=== PATIENT | female | born 1940 | race Two or more races ===

== ENCOUNTER 2018-01-29 19:26 | Inpatient (IN) | payer MEDICARE, OTHER ==
[~2018-01-29] VITALS: Ht 162.6 cm; Wt 65.8 kg
--- NOTE | 2018-01-29 19:36 | NUR ---
Pt BIB [facility], reports pt had mechanical fall on bus and has neck and back pain. Pt c/o 10/10 lower back pain in addition to ALMARAZ and neck pain. Also states she has numbness/tingling in both feet and both hands. Pt denies CP, SOB, dizziness, n/v, no other complaints, no distress noted, but is having minor tremors in hands.
[2018-01-29] MEDS ORDERED: ACETAMINOPHEN 325 MG TABLET PO ONE (20:15)
[2018-01-29] MEDS ORDERED: ACETAMINOPHEN 325 MG TABLET ONE (21:20)
[2018-01-29] MEDS ORDERED: ONDANSETRON ODT 4 MG TAB.RAPDIS ONE (21:20)
[2018-01-29] MEDS ORDERED: ONDANSETRON ODT 4 MG TAB.RAPDIS SL ONE (21:30)
[2018-01-29 22:52] LABS: BASOPHILS % (AUTO) 0.4 % (0.0-2.0); EOSINOPHILS # (AUTO) 0.1 K/uL (0.0-0.7); EOSINOPHILS % (AUTO) 0.8 % (0.0-7.0); HEMATOCRIT 36.2 % (31.2-41.9); HEMOGLOBIN 12.3 g/dL (10.9-14.3); LYMPHOCYTES # (AUTO) 1.6 K/uL (20.0-40.0); LYMPHOCYTES % (AUTO) 18.3 % (20.5-51.5); MEAN CORPUSCULAR HEMOGLOBIN 31.8 uug (24.7-32.8); MEAN CORPUSCULAR HGB CONC 34 g/dL (32.3-35.6); MEAN CORPUSCULAR VOLUME 93.8 fL (75.5-95.3); MONOCYTES # (AUTO) 0.7 K/uL (2.0-10.0); MONOCYTES % (AUTO) 8.4 % (0.0-11.0); NEUTROPHILS # (AUTO) 6.1 K/uL (1.8-8.9); NEUTROPHILS % (AUTO) 72.1 % (38.5-71.5); PLATELET COUNT (AUTO) 328 K/uL (179-408); RED BLOOD CELL COUNT(AUTO) 3.86 MIL/uL (3.63-4.92); WHITE BLOOD COUNT (AUTO) 8.5 K/uL (3.8-11.8)
[2018-01-29 22:55] LABS: CARBON DIOXIDE 24 mmol/L (21-32); CHLORIDE 104 mmol/L (98-107); CREATININE 0.6 mg/dL (0.6-1.3); GLUCOSE 88 mg/dL (74-106); POTASSIUM 3.4 mmol/L (3.5-5.1); UREA NITROGEN, BLOOD 16 mg/dL (7-18)
[2018-01-29] MEDS ORDERED: MORPHINE SULFATE 2 MG/1 ML DISP.SYRIN IV ONE (23:00)
[2018-01-29] MEDS ORDERED: MORPHINE SULFATE 4 MG/1 ML DISP.SYRIN ONE (23:00)
--- NOTE | 2018-01-29 23:07 | NUR ---
Dr. Simmons speaking to Bryant Barney ([facility]).
[2018-01-29] MEDS ORDERED: MAGNESIUM HYDROXIDE 30 ML LIQUID UDC PO PRN (23:30)
[2018-01-29] MEDS ORDERED: ACETAMINOPHEN 325 MG TABLET PO PRN (23:30)
[2018-01-29] MEDS ORDERED: Z GUARD REMEDY PASTE 57 GM TUBE TOP PRN (23:30)
[2018-01-29] MEDS ORDERED: ONDANSETRON 4 MG/2 ML VIAL IV PRN (23:30)
--- NOTE | 2018-01-29 23:50 | NUR ---
Pt. admitted to [facility] room 215, under care of Dr. Bryant Barney Belongs List completed. Report given to NORI Rose. DX: T-12 fracture.
[2018-01-30] MEDS ORDERED: ENOXAPARIN SODIUM 40 MG/0.4 ML DISP.SYRIN SQ ONE
--- NOTE | 2018-01-30 | NUR ---
Received patient from ER in stable condition. No acute distress noted. New admit to Med surg floor under MAIL ORDER CLERK Bryant Barney. Admit Dx T8 & T12 Fracture. Patient stating she has pain only when moved. A/Ox3, Georgian/Belarusian speaking, able to make most needs known. Vital signs within range upon admission. Skin intact, no skin issues noted. Left forearm 20G IV site is patent, flushing well, & locked. Per ER nurse, medical hx of patient is unknown. Daughter to come in AM. Patient stating that she is healthy & has no medical conditions. F/U with daughter for medical hx & home meds in AM. MAIL ORDER CLERK Bryant Bareny aware. Patient refusing to be changed & wear hospital clothing. Bed in low position, locked, x2 side rails up. Call light within reach. Will continue to monitor through shift.
[2018-01-30 00:44] VITALS: BP 113/60
[2018-01-30 05:08] VITALS: BP 108/62
[2018-01-30] MEDS: PANTOPRAZOLE SODIUM 40 MG TABLET.DR PO SCH (06:16)
[2018-01-30] MEDS: HYDROCODONE/APAP 5-325MG TABLET PO PRN (06:16)
--- NOTE | 2018-01-30 06:24 | NUR ---
No acute distress throughout the night. Slept well, vital signs within range. C/O pain lower back. Pain management provided. All needs attended to. Medications administered per MD order. Comfort measures provided. Safety measures implemented. Call light in reach. Will endorse to day shift nurse.
[2018-01-30 07:02] LABS: BASOPHILS % (AUTO) 0.2 % (0.0-2.0); EOSINOPHILS # (AUTO) 0.1 K/uL (0.0-0.7); EOSINOPHILS % (AUTO) 1.6 % (0.0-7.0); HEMATOCRIT 35.4 % (31.2-41.9); HEMOGLOBIN 12.2 g/dL (10.9-14.3); LYMPHOCYTES # (AUTO) 1.9 K/uL (20.0-40.0); LYMPHOCYTES % (AUTO) 30.7 % (20.5-51.5); MEAN CORPUSCULAR HEMOGLOBIN 32.5 uug (24.7-32.8); MEAN CORPUSCULAR HGB CONC 34 g/dL (32.3-35.6); MEAN CORPUSCULAR VOLUME 94.4 fL (75.5-95.3); MONOCYTES # (AUTO) 0.6 K/uL (2.0-10.0); MONOCYTES % (AUTO) 10.5 % (0.0-11.0); NEUTROPHILS # (AUTO) 3.4 K/uL (1.8-8.9); PLATELET COUNT (AUTO) 310 K/uL (179-408); RED BLOOD CELL COUNT(AUTO) 3.74 MIL/uL (3.63-4.92); WHITE BLOOD COUNT (AUTO) 6.1 K/uL (3.8-11.8)
[2018-01-30 07:25] LABS: CARBON DIOXIDE 26 mmol/L (21-32); CHLORIDE 104 mmol/L (98-107); CHOLESTEROL 248 mg/dL (<200); CREATININE 0.7 mg/dL (0.6-1.3); GLUCOSE 86 mg/dL (74-106); HDL CHOLESTEROL 46 mg/dL (40-60); PHOSPHOROUS 3.7 mg/dL (2.5-4.9); POTASSIUM 3.5 mmol/L (3.5-5.1); TRIGLYCERIDES 103 MG/DL (30-150); UREA NITROGEN, BLOOD 16 mg/dL (7-18)
[2018-01-30 07:28] LABS: THYROID STIMULATING HORMONE 10.813 mIU/mL (0.358-3.740)
--- NOTE | 2018-01-30 07:30 | NUR ---
Patient continued to report pain 10 out of 10 for back pain this am after [place], not effective. offered Morphine for pain, refused. Patient also reported pain on lateral left side of head, patient stated that she possibly hit her head when she fell unable to recall, will report to MD for recommendation of CT head
[2018-01-30 10:04] VITALS: BP 109/73
[2018-01-30] MEDS ORDERED: KETOROLAC TROMETHAMINE 30 MG INJ IVP ONE (10:30)
[2018-01-30] MEDS ORDERED: LORAZEPAM 0.5 MG TABLET PO PRN (11:30)
[2018-01-30] MEDS: IV NS 1000 ML 1,000 ML IV PRN (12:14)
[2018-01-30 15:03] VITALS: BP 101/55
[2018-01-30] MEDS: NAPROXEN 250 MG TABLET PO SCH (18:43)
[2018-01-30] MEDS: GABAPENTIN 100 MG CAPSULE PO SCH (18:43)
[2018-01-30 18:46] VITALS: BP 113/50
--- NOTE | 2018-01-30 19:30 | NUR ---
Patient stable at start of shift. Lying comfortably in bed, alert, awake, & able to make her needs known. Pertinent assessment completed. Vital signs within range. No C/O pain at beginning of shift. Patient states she only has pain with movement. Pain management to be provided. Noted with left forearm 20G peripheral IV running with NS at 75cc/hr. No signs of infiltration noted at IV site. Bed in low position, locked, with side rails up. Encouraged patient to use call light for assistance & ambulating to restroom. Call light within reach. Will continue to monitor through shift.
[2018-01-30] MEDS: ENOXAPARIN SODIUM 40 MG/0.4 ML DISP.SYRIN SQ SCH (20:07)
[2018-01-30 20:16] VITALS: BP 119/48
[2018-01-31] MEDS: IV NS 1000 ML 1,000 ML IV PRN ×2 (02:27→16:34)
[2018-01-31 05:24] VITALS: BP 132/62
[2018-01-31] MEDS: PANTOPRAZOLE SODIUM 40 MG TABLET.DR PO SCH (06:08)
--- NOTE | 2018-01-31 06:15 | NUR ---
Slept well during the night. No C/O pain during the shift. Complaint with care. All needs attended to promptly. Medications administered per MD order. Patient kept clean & dry. Safety measures implemented. Bed kept in lowest position, locked, with x2 side rails up. Call light within reach. Will endorse to day shift nurse.
[2018-01-31] MEDS: GABAPENTIN 100 MG CAPSULE PO SCH ×3 (08:35→17:07)
[2018-01-31] MEDS: NAPROXEN 250 MG TABLET PO SCH ×3 (08:35→17:07)
[2018-01-31] MEDS: HYDROCODONE/APAP 5-325MG TABLET PO PRN ×3 (11:21→21:02)
[2018-01-31 11:43] VITALS: BP 102/60
--- NOTE | 2018-01-31 14:00 | NUR ---
received hand off report from elinor lizama
--- NOTE | 2018-01-31 14:15 | NUR ---
PATIENT LYING IN BED, IN NO DISTRESS. IVF RUNNING, NO INFILTRATION NOTED. PAIN MANAGEMENT ORDERED. VS STABLE, AFEBRILE. ASSISTED PATIENT WITH TOILETING NEEDS. ENDORSED TO DAY SHIFT RN.
--- NOTE | 2018-01-31 14:33 | NUR ---
received hand off report from elinor lizama
[2018-01-31 16:06] VITALS: BP 141/56
--- NOTE | 2018-01-31 18:45 | NUR ---
PATIENT IN STABLE CONDITION. IV ACCESS INTACT AND PATENT, IVF INFUSING WELL, PAIN CONTROLLED W/ NORCO 5-325MG Q4PRN. ALL NEEDS ATTENDED AND ANTICIPATED. CALL LIGHT WITHIN REACH
--- NOTE | 2018-01-31 19:33 | NUR ---
Pt observed to be resting in bed at this time AAO x 4, in no acute distress. Safe environment implemented. Call light within reach.
[2018-01-31] MEDS: ATORVASTATIN 10 MG TABLET PO SCH (20:05)
[2018-01-31] MEDS: ENOXAPARIN SODIUM 40 MG/0.4 ML DISP.SYRIN SQ SCH (20:07)
[2018-01-31 20:24] VITALS: BP 110/50
[2018-02-01 04:00] VITALS: BP 95/51
[2018-02-01] MEDS: PANTOPRAZOLE SODIUM 40 MG TABLET.DR PO SCH (06:13)
[2018-02-01] MEDS: IV NS 1000 ML 1,000 ML IV PRN ×2 (06:13→20:30)
--- NOTE | 2018-02-01 06:26 | NUR ---
Pain management provided as ordered. No s/s of acute distress noted at this time. Safe environment implemented. Call light within reach.
[2018-02-01] MEDS: NAPROXEN 250 MG TABLET PO SCH ×3 (08:11→16:55)
[2018-02-01] MEDS: GABAPENTIN 100 MG CAPSULE PO SCH ×3 (08:11→16:55)
[2018-02-01] MEDS ORDERED: BISACODYL 10 MG SUPP.RECT RC PRN (10:30)
[2018-02-01] MEDS ORDERED: MIRALAX 17 GM POWD.PACK PO PRN (10:30)
[2018-02-01] MEDS ORDERED: MINERAL OIL FLEET ENEMA 133 ML BOTTLE RC PRN (10:30)
[2018-02-01 11:30] VITALS: BP 120/56
[2018-02-01] MEDS: HYDROCODONE/APAP 5-325MG TABLET PO PRN (14:22)
[2018-02-01 16:12] VITALS: BP 124/67
--- NOTE | 2018-02-01 18:54 | NUR ---
PATIENT RESTING IN BED, IN NO DISTRESS. IVF RUNNING, NO INFILTRATION NOTED. VS STABLE, AFEBRILE. ASSISTED PATIENT WITH TOILETING NEEDS. PAIN MANAGEMENT ORDERED. WILL ENDORSE TO SENIOR ELECTRICAL PROJECT MANAGER RN.
--- NOTE | 2018-02-01 19:20 | NUR ---
Received patient lying in bed. AAO x2-3. no confusion noted. In no acute distress. VS WNL. IV site on left hand intact and patent. IVF infusing. Complained of pain on left side of her body, will provide pain medication per order. Needs assessed and attended to. Safety measure initiated and call antonio within reach.
[2018-02-01] MEDS: MORPHINE SULFATE 2 MG/1 ML DISP.SYRIN IV PRN (19:58)
[2018-02-01 20:00] VITALS: BP 126/60
[2018-02-01] MEDS: ATORVASTATIN 10 MG TABLET PO SCH (20:28)
[2018-02-01] MEDS: ENOXAPARIN SODIUM 40 MG/0.4 ML DISP.SYRIN SQ SCH (20:29)
[2018-02-02 04:53] VITALS: BP 119/59
--- NOTE | 2018-02-02 06:04 | NUR ---
AAOx2-3. In no acute distress. VS WNL. IV site on left hand remains intact and patent. IVF infusing. Assisted to BSC PRN. Needs attended to and met. Safety measure maintained and call antonio within reach.
[2018-02-02] MEDS: PANTOPRAZOLE SODIUM 40 MG TABLET.DR PO SCH (06:08)
--- NOTE | 2018-02-02 07:30 | NUR ---
RECEIVED PATIENT IN BED WITH EYES CLOSED OPENED EYES WHEN NAME IS CALLED BUT WILL PROMPTLY FALL BACK ASLEEP NO RESPIRATORY DISTRESS AT THIS TIME NO S/S OF PAIN OR DISCOMFORTS.REMAIN ON IVF ORDERED WITH NO S/S OF INFILTERATION ON SITE MADE COMFORTABLE AND WILL CONTINUE TO OBSERVE.
[2018-02-02] MEDS: GABAPENTIN 100 MG CAPSULE PO SCH ×3 (08:11→16:18)
[2018-02-02] MEDS: NAPROXEN 250 MG TABLET PO SCH ×3 (08:11→16:18)
[2018-02-02] MEDS: IV NS 1000 ML 1,000 ML IV PRN ×2 (09:54→23:13)
[2018-02-02] MEDS: HYDROCODONE/APAP 5-325MG TABLET PO PRN (10:15)
--- NOTE | 2018-02-02 10:16 | NUR ---
ASSISTED TO THE BED SIDE COMMODE VOIDED LARGE AMOUNTS OF [place] COLORED URINE ASSISTED BACK INTO BED MADE COMFORTABLE AND MEDICATED FOR C/O GENERALISED PAIN ORDERED AND WILL CONTINUE TO OBSERVE.
[2018-02-02 11:45] VITALS: BP 136/64
--- NOTE | 2018-02-02 14:30 | NUR ---
NOTED BAND AIDE ON BILATERAL GREAT TOES REMOVED AND NOTED THAT LEFT GREAT TOE IS MISSING AND THE RIGHT GREAT TOE WITH A SMALL SCAB PATIENT STATED HAD IN GROWN TOE NAILS AND WAS AT THE CLINIC FEW WEEKS AGO WHERE SHE WAS SEEN BY A PRODUCTION LEAD NO BLEEDING BAND AIDE REPLACED AND MD AWARE WITH NO NEW ORDERS AT THIS TIME.
--- NOTE | 2018-02-02 15:10 | NUR ---
PATIENT STILL HAS NOT HAD A BOWEL MOVEMENT GAVE HER PRUNE JUICE WITH NO RESULTS OFFERED TO GIVE PATIENT ENEMA BUT SHE REFUSED STATED THAT SHE DOES NOT WANT IT AT THIS TIME MAY BE LATER TONIGHT.
[2018-02-02 15:30] VITALS: BP 134/57
--- NOTE | 2018-02-02 16:32 | NUR ---
PATIENT IS VERY ANXIOUS ABOUT DISCHARGE AFTER THE BROADCAST OPERATIONS MANAGER SPOKE WITH HER RE DISCHARGE PLANNING RE OPTIONS OF HER FINAL DESTINATION THE PATIENT IS VERY GUARDED AND UPSET AND DR WASHINGTON AWARE STATED WILL BE HERE TO SEE PATIENT THIS EVENING AND WILL THEN DECIDE NEXT PLAN OF CARE.
--- NOTE | 2018-02-02 17:59 | NUR ---
RESTING IN BED NABIL NOW STATED WAITING FOR DR HERNANDEZ TO COME AND INFORM HER THE NEXT PLAN OF CARE.
--- NOTE | 2018-02-02 19:30 | NUR ---
Received patient lying in bed. AAOx2-3. In no acute distress. VS WNL. IV site on left hand intact and patent. IVF infusing. Complained of pain on left side of her body, left leg and spine, will provide pain medication per order. Assisted to BSCx1 and urinated without difficulty. Offered Milk of Magnesia or Dulcolax supp. for constipation but patient refused, stated she will take one when she gets back home. Needs assessed and attended to. Safety measure initiated and call antonio within reach.
[2018-02-02 20:00] VITALS: BP 130/59
[2018-02-02] MEDS: ATORVASTATIN 10 MG TABLET PO SCH (20:18)
[2018-02-02] MEDS: MORPHINE SULFATE 2 MG/1 ML DISP.SYRIN IV PRN (20:19)
[2018-02-02] MEDS: ENOXAPARIN SODIUM 40 MG/0.4 ML DISP.SYRIN SQ SCH (20:21)
[2018-02-03 04:56] VITALS: BP 104/53
--- NOTE | 2018-02-03 06:08 | NUR ---
AAOx2-3. In no acute distress. Slept well last night. IV site on left hand remains intact and patent. IVF infusing. Assisted to BSC PRN. Needs attended to and met. Safety measure maintained and call antonio within reach.
[2018-02-03] MEDS: PANTOPRAZOLE SODIUM 40 MG TABLET.DR PO SCH (06:10)
[2018-02-03] MEDS: NAPROXEN 250 MG TABLET PO SCH ×2 (08:10→12:20)
[2018-02-03] MEDS: GABAPENTIN 100 MG CAPSULE PO SCH ×2 (08:10→12:20)
[2018-02-03] MEDS ORDERED: ATOR10TA PO (10:39)
[2018-02-03 12:00] VITALS: BP 121/64
--- NOTE | 2018-02-03 15:22 | NUR ---
D/C ORDERS RECEIVED NOTED AND CARRIED OUT,D/C INSTRUCTION AND EDUCATION GIVEN TO THE PT,D/C JORDONLOCK PER MD ORDERS,RN REPORT GIVEN TO THE [facility] .PT LEFT THE FACILITY VIA AMBULANCES IN STABLE CONDITION.
== END 2018-02-03 15:30 | DRG 544 ==
LOC: ER 19:26 → MED 23:48
PROVIDERS: ADMIT Hospitalist; ATTEND Hospitalist
DX: M80.88XA Other osteoporosis with current pathological fracture, vertebra(e), initial encounter for fracture (principal); M25.551 Pain in right hip; V48.6XXA Car passenger injured in noncollision transport accident in traffic accident, initial encounter; W01.0XXA Fall on same level from slipping, tripping and stumbling without subsequent striking against object, initial encounter; Y93.89 Activity, other specified; Y92.410 Unspecified street and highway as the place of occurrence of the external cause; G93.0 Cerebral cysts; E87.6 Hypokalemia; E02 Subclinical iodine-deficiency hypothyroidism; E78.5 Hyperlipidemia, unspecified; R26.2 Difficulty in walking, not elsewhere classified; M47.816 Spondylosis without myelopathy or radiculopathy, lumbar region; M85.80 Other specified disorders of bone density and structure, unspecified site; M47.814 Spondylosis without myelopathy or radiculopathy, thoracic region; K59.00 Constipation, unspecified
CPT/HCPCS: 36415; 70450; 72050; 72072; 72100; 72125; 72131; 72170; 73501; 83735; 84100; 84443; 85025; 85730; 97110; 97116; 97530; A4663; G0378; J1650; J1885; J2270; J7030; Q0162

== ENCOUNTER 2018-04-14 11:59 | Inpatient (IN) | payer MEDICARE, OTHER ==
[~2018-04-14] VITALS: Ht 152.4 cm; Wt 55.5 kg
[~2018-04-14 11:59] MED LIST: ATOR10TA PO
[2018-04-14] MEDS ORDERED: MORPHINE SULFATE 4 MG/1 ML DISP.SYRIN ONE (12:30)
[2018-04-14] MEDS ORDERED: MORPHINE SULFATE 4 MG/1 ML DISP.SYRIN IV ONE (12:30)
[2018-04-14 12:41] LABS: BASOPHILS % (AUTO) 0.5 % (0.0-2.0); EOSINOPHILS # (AUTO) 0.1 K/uL (0.0-0.7); EOSINOPHILS % (AUTO) 1.5 % (0.0-7.0); HEMATOCRIT 39.7 % (31.2-41.9); HEMOGLOBIN 13.4 g/dL (10.9-14.3); LYMPHOCYTES # (AUTO) 2.4 K/uL (20.0-40.0); LYMPHOCYTES % (AUTO) 32.5 % (20.5-51.5); MEAN CORPUSCULAR HEMOGLOBIN 31.9 uug (24.7-32.8); MEAN CORPUSCULAR HGB CONC 34 g/dL (32.3-35.6); MEAN CORPUSCULAR VOLUME 95.1 fL (75.5-95.3); MONOCYTES # (AUTO) 0.8 K/uL (2.0-10.0); MONOCYTES % (AUTO) 11.6 % (0.0-11.0); NEUTROPHILS # (AUTO) 3.9 K/uL (1.8-8.9); NEUTROPHILS % (AUTO) 53.9 % (38.5-71.5); PLATELET COUNT (AUTO) 312 K/uL (179-408); RED BLOOD CELL COUNT(AUTO) 4.18 MIL/uL (3.63-4.92); WHITE BLOOD COUNT (AUTO) 7.2 K/uL (3.8-11.8)
[2018-04-14 12:48] LABS: CARBON DIOXIDE 28 mmol/L (21-32); CHLORIDE 103 mmol/L (98-107); CREATININE 0.7 mg/dL (0.6-1.3); GLUCOSE 85 mg/dL (74-106); UREA NITROGEN, BLOOD 17 mg/dL (7-18)
[2018-04-14] MEDS ORDERED: ATOR10TA PO (12:53)
[2018-04-14] MEDS ORDERED: GABA-532 PO (12:53)
[2018-04-14] MEDS ORDERED: LEVO25TA9 PO (12:53)
[2018-04-14] MEDS ORDERED: KETOROLAC TROMETHAMINE 30 MG INJ IVP ONE (13:45)
[2018-04-14] MEDS ORDERED: KETOROLAC TROMETHAMINE 30 MG INJ ONE (13:50)
[2018-04-14] MEDS ORDERED: HYDROMORPHONE 1 MG/1 ML DISP.SYRIN IV ONE (15:15)
[2018-04-14] MEDS ORDERED: HYDROMORPHONE 1 MG/1 ML DISP.SYRIN ONE (15:29)
[2018-04-14] MEDS ORDERED: NITROGLYCERIN OINT 1 GM PACKET TP ONE ×2 (19:00→19:06)
[2018-04-14] MEDS ORDERED: ASPIRIN 81 MG TAB.CHEW PO ONE (19:00)
[2018-04-14] MEDS ORDERED: ASPIRIN 81 MG TAB.CHEW ONE (19:06)
[2018-04-14] MEDS ORDERED: Z GUARD REMEDY PASTE 57 GM TUBE TOP PRN (19:45)
[2018-04-14] MEDS ORDERED: MORPHINE SULFATE 2 MG/1 ML DISP.SYRIN IV PRN (19:45)
[2018-04-14] MEDS ORDERED: ONDANSETRON 4 MG/2 ML VIAL IV PRN (19:45)
[2018-04-14] MEDS ORDERED: ACETAMINOPHEN 325 MG TABLET PO PRN (19:45)
[2018-04-14] MEDS ORDERED: MAGNESIUM HYDROXIDE 30 ML LIQUID UDC PO PRN (19:45)
[2018-04-14 20:00] VITALS: BP 107/51
[2018-04-14] MEDS ORDERED: MORPHINE SULFATE 4 MG/1 ML DISP.SYRIN IV PRN (20:00)
[2018-04-14] MEDS: ATORVASTATIN 10 MG TABLET PO SCH (21:00)
[2018-04-14] MEDS: MORPHINE SULFATE 4 MG/1 ML DISP.SYRIN IV PRN (21:01)
[2018-04-15] VITALS: BP 110/54
[2018-04-15 04:00] VITALS: BP 119/63
[2018-04-15] MEDS: LEVOTHYROXINE SODIUM 25 MCG TABLET PO SCH (06:14)
[2018-04-15 06:55] LABS: BASOPHILS % (AUTO) 0.3 % (0.0-2.0); EOSINOPHILS # (AUTO) 0.2 K/uL (0.0-0.7); EOSINOPHILS % (AUTO) 2.5 % (0.0-7.0); HEMATOCRIT 36.6 % (31.2-41.9); HEMOGLOBIN 12.3 g/dL (10.9-14.3); LYMPHOCYTES # (AUTO) 1.9 K/uL (20.0-40.0); LYMPHOCYTES % (AUTO) 30.4 % (20.5-51.5); MEAN CORPUSCULAR HEMOGLOBIN 31.2 uug (24.7-32.8); MEAN CORPUSCULAR HGB CONC 34 g/dL (32.3-35.6); MEAN CORPUSCULAR VOLUME 93.3 fL (75.5-95.3); MONOCYTES # (AUTO) 0.7 K/uL (2.0-10.0); MONOCYTES % (AUTO) 11.5 % (0.0-11.0); NEUTROPHILS # (AUTO) 3.4 K/uL (1.8-8.9); NEUTROPHILS % (AUTO) 55.3 % (38.5-71.5); PLATELET COUNT (AUTO) 278 K/uL (179-408); RED BLOOD CELL COUNT(AUTO) 3.93 MIL/uL (3.63-4.92); WHITE BLOOD COUNT (AUTO) 6.2 K/uL (3.8-11.8)
[2018-04-15 07:07] LABS: CARBON DIOXIDE 28 mmol/L (21-32); CHLORIDE 104 mmol/L (98-107); CHOLESTEROL 260 mg/dL (<200); CREATININE 0.7 mg/dL (0.6-1.3); GLUCOSE 78 mg/dL (74-106); HDL CHOLESTEROL 44 mg/dL (40-60); MAGNESIUM 2.2 mg/dL (1.8-2.4); PHOSPHOROUS 3.5 mg/dL (2.5-4.9); POTASSIUM 3.7 mmol/L (3.5-5.1); TRIGLYCERIDES 146 MG/DL (30-150); UREA NITROGEN, BLOOD 20 mg/dL (7-18)
[2018-04-15] MEDS ORDERED: GABAPENTIN 100 MG CAPSULE PO SCH ×2 (09:00→17:00)
[2018-04-15 11:29] VITALS: BP 126/78
[2018-04-15] MEDS: GABAPENTIN 300 MG CAPSULE PO SCH (15:12)
[2018-04-15] MEDS: HYDROCODONE/APAP 5-325MG TABLET PO PRN (15:23)
[2018-04-15 15:26] VITALS: BP 141/66
[2018-04-15 19:13] VITALS: BP 115/50
[2018-04-15] MEDS: MORPHINE SULFATE 4 MG/1 ML DISP.SYRIN IV PRN (20:45)
[2018-04-15] MEDS: ATORVASTATIN 10 MG TABLET PO SCH (20:46)
[2018-04-15 23:50] VITALS: BP 121/65
[2018-04-16 03:18] VITALS: BP 125/61
[2018-04-16] MEDS: LEVOTHYROXINE SODIUM 25 MCG TABLET PO SCH (06:35)
[2018-04-16] MEDS: GABAPENTIN 300 MG CAPSULE PO SCH ×3 (08:48→16:27)
[2018-04-16 11:19] VITALS: BP 122/67
[2018-04-16] MEDS: HYDROCODONE/APAP 5-325MG TABLET PO PRN ×2 (12:15→20:33)
[2018-04-16 15:11] VITALS: BP 95/61
[2018-04-16 19:09] VITALS: BP 129/72
[2018-04-16] MEDS: ATORVASTATIN 10 MG TABLET PO SCH (20:31)
[2018-04-16 20:49] LABS: ALANINE AMINOTRANSFERASE 20 U/L (14-59); ALKALINE PHOSPHATASE 117 U/L (50-136); ASPARTATE AMINOTRANSFERASE 17 U/L (15-37); BILIRUBIN,TOTAL 0.2 mg/dL (0.2-1.0); CARBON DIOXIDE 31 mmol/L (21-32); CHLORIDE 100 mmol/L (98-107); CREATININE 0.8 mg/dL (0.6-1.3); GLUCOSE 91 mg/dL (74-106); POTASSIUM 4.3 mmol/L (3.5-5.1); TOTAL PROTEIN, SERUM 7.3 g/dL (6.4-8.2); UREA NITROGEN, BLOOD 25 mg/dL (7-18)
[2018-04-17 03:31] VITALS: BP 125/50
[2018-04-17] MEDS: LEVOTHYROXINE SODIUM 25 MCG TABLET PO SCH (06:15)
[2018-04-17] MEDS: GABAPENTIN 300 MG CAPSULE PO SCH ×2 (08:03→13:09)
[2018-04-17 12:00] VITALS: BP 124/64
== END 2018-04-17 15:15 | DRG 561 ==
LOC: ER 11:59 → TELE 19:48 → MED 04-16 10:35
PROVIDERS: ADMIT Family Medicine; ATTEND Internal Medicine
DX: M48.54XG Collapsed vertebra, not elsewhere classified, thoracic region, subsequent encounter for fracture with delayed healing (principal); I10 Essential (primary) hypertension; E78.5 Hyperlipidemia, unspecified; M51.17 Intervertebral disc disorders with radiculopathy, lumbosacral region; M48.061 Spinal stenosis, lumbar region without neurogenic claudication; M47.816 Spondylosis without myelopathy or radiculopathy, lumbar region; D18.00 Hemangioma unspecified site; Z79.899 Other long term (current) drug therapy; R07.9 Chest pain, unspecified
CPT/HCPCS: 36415; 70030-TC; 71045; 71111; 72148; 83735; 84100; 85025; 93005; 93307; A4663; G0378; J1170; J1885; J2270; J2405

== ENCOUNTER 2018-08-13 12:32 | Emergency (ER) | payer MEDICARE, MEDICAID ==
[~2018-08-13] VITALS: Ht 152.4 cm; Wt 59.0 kg
[~2018-08-13 12:32] MED LIST changes: +GABA-532 PO; +LEVO25TA9 PO
--- NOTE | 2018-08-13 12:45 | NUR ---
Dr Dudley at the bedside for MSE.
[2018-08-13 13:07] LABS: BASOPHILS % (AUTO) 0.5 % (0.0-2.0); EOSINOPHILS # (AUTO) 0.1 K/uL (0.0-0.7); EOSINOPHILS % (AUTO) 1.4 % (0.0-7.0); HEMATOCRIT 39.9 % (31.2-41.9); HEMOGLOBIN 13.3 g/dL (10.9-14.3); LYMPHOCYTES # (AUTO) 2.4 K/uL (20.0-40.0); LYMPHOCYTES % (AUTO) 39.2 % (20.5-51.5); MEAN CORPUSCULAR HEMOGLOBIN 30.4 uug (24.7-32.8); MEAN CORPUSCULAR HGB CONC 33 g/dL (32.3-35.6); MEAN CORPUSCULAR VOLUME 91.4 fL (75.5-95.3); MONOCYTES # (AUTO) 0.6 K/uL (2.0-10.0); MONOCYTES % (AUTO) 9.2 % (0.0-11.0); NEUTROPHILS # (AUTO) 3.1 K/uL (1.8-8.9); NEUTROPHILS % (AUTO) 49.7 % (38.5-71.5); PLATELET COUNT (AUTO) 297 K/uL (179-408); RED BLOOD CELL COUNT(AUTO) 4.37 MIL/uL (3.63-4.92); WHITE BLOOD COUNT (AUTO) 6.2 K/uL (3.8-11.8)
[2018-08-13 13:17] LABS: CARBON DIOXIDE 26 mmol/L (21-32); CHLORIDE 102 mmol/L (98-107); CREATININE 0.7 mg/dL (0.6-1.3); GLUCOSE 85 mg/dL (74-106); POTASSIUM 4.3 mmol/L (3.5-5.1); UREA NITROGEN, BLOOD 14 mg/dL (7-18)
[2018-08-13 13:23] LABS: ALANINE AMINOTRANSFERASE 21 U/L (14-59); ALKALINE PHOSPHATASE 108 U/L (50-136); ASPARTATE AMINOTRANSFERASE 20 U/L (15-37); BILIRUBIN,DIRECT 0.1 mg/dL (0.0-0.2); BILIRUBIN,TOTAL 0.3 mg/dL (0.2-1.0); TOTAL PROTEIN, SERUM 7.9 g/dL (6.4-8.2)
[2018-08-13 14:55] VITALS: BP 129/77
--- NOTE | 2018-08-13 15:01 | NUR ---
Patient discharged to home in stable conditon. Written and verbal after care instructions given. Patient verbalizes understanding of instructions. Pt left Er w/ steady gait.
== END 2018-08-13 15:02 | disposition home or self-care (01) ==
LOC: ER 12:32
DX: M54.9 Dorsalgia, unspecified (principal); R25.1 Tremor, unspecified; E03.9 Hypothyroidism, unspecified; Z79.899 Other long term (current) drug therapy
CPT/HCPCS: 36415; 72072; 72100; 85025; A4663